=== PATIENT | male | born 1990 | race Caucasian/White ===

== ENCOUNTER 2020-04-27 18:30 | Emergency (ER) | payer OTHER, SELFPAY ==
[2020-04-27 18:32] VITALS: BP 122/85; PULSE 77; RESP 16; TEMP 36.2; O2SAT 100; BMI 23.0
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
--- NOTE | 2020-04-27 18:49 | ED.RN ---
RN INTO ROOM TO SEE IF PATIENT WANTS TO FILE WORKERS COMP. PATIENT DECLINED.
== END 2020-04-27 19:41 | disposition home or self-care (01) ==
PROVIDERS: Emergency Provider Emergency Medicine
DX: S00.531A Contusion of lip, initial encounter (principal); Y04.2XXA Assault by strike against or bumped into by another person, initial encounter
CPT/HCPCS: 99281; 99282; J7030